=== PATIENT | male | born 1960 | race Caucasian/White ===

== ENCOUNTER 2017-09-29 04:30 | Emergency (ER) | payer OTHER ==
[~2017-09-29] VITALS: Ht 172.7 cm; Wt 89.8 kg
[2017-09-29] MEDS ORDERED: UNOBMED (04:32)
[2017-09-29 04:45] VITALS: BP 166/92
[2017-09-29 05:18] LABS: BASOPHILS % (AUTO) 0.9 % (0.0-2.0); EOSINOPHILS % (AUTO) 1.7 % (0.0-3.0); HEMATOCRIT 33.6 % (42.0-52.0); HEMOGLOBIN 10.7 G/DL (14.2-18.0); LYMPHOCYTES % (AUTO) 11.4 % (20.0-45.0); MEAN CORPUSCULAR VOLUME 96 FL (80-99); MONOCYTES % (AUTO) 9.9 % (1.0-10.0); NEUTROPHILS % (AUTO) 76.1 % (45.0-75.0); PLATELET COUNT 295 K/UL (150-450); RED BLOOD COUNT 3.49 M/UL (4.70-6.10); RED CELL DISTRIBUTION WIDTH 13.4 % (11.6-14.8); WHITE BLOOD COUNT 9.2 K/UL (4.8-10.8)
[2017-09-29 05:31] LABS: ANION GAP 7 mmol/L (5-15); BLOOD UREA NITROGEN 42 mg/dL (7-18); CALCIUM 7.6 MG/DL (8.5-10.1); CARBON DIOXIDE 28 MMOL/L (21-32); CHLORIDE 109 MMOL/L (98-107); CREATININE 3.6 MG/DL (0.55-1.30); POTASSIUM 3.8 MMOL/L (3.5-5.1); SODIUM 144 MMOL/L (136-145)
--- NOTE | 2017-09-29 05:33 | Emergency Room Report ---
History of Present Illness General Chief Complaint: Chest Pain Source: Patient Present Illness HPI 57-year-old male presents to ED complaining of chest pain started at rest tonight. Pain was initially a 5/10, dull, midsternal, nonradiating. Patient was given nitroglycerin states the pain is now improved. Has history of ESRD on dialysis. States he is compliant with his dialysis. Denies smoking or drug use. No other aggravating relieving factors. Denies any other associated symptoms Allergies: Coded Allergies: No Known Allergies (Unverified , 09/29/17) Patient History Past Medical History: DM, HTN, renal disease, dialysis Pertinent Family History: none Social History: Denies: smoking, alcohol use, drug use Immunizations: UTD Reviewed Nursing Documentation: PMH: Agreed, PSxH: Agreed Nursing Documentation-PMH Past Medical History: No History, Except For Hx Hypertension: Yes Hx Diabetes: Yes - dm2 Hx Dialysis: Yes - AV shunt on right arm; t-clara-sat Review of Systems All Other Systems: negative except mentioned in HPI Physical Exam Vital Signs Date Time Temp Pulse Resp B/P (MAP) Pulse Ox O2 Delivery O2 Flow Rate FiO2 09/29/17 04:28 98.2 94 16 178/103 95 Sp02 EP Interpretation: reviewed, normal General Appearance: no apparent distress, alert, GCS 15, non-toxic Head: normocephalic, atraumatic Eyes: bilateral eye normal inspection, bilateral eye PERRL ENT: hearing grossly normal, normal pharynx, no angioedema, normal voice Neck: full range of motion, supple/symm/no masses Respiratory: chest non-tender, lungs clear, normal breath sounds, speaking full sentences Cardiovascular #1: regular rate, rhythm, no edema Cardiovascular #2: 2+ carotid (R), 2+ carotid (L), 2+ radial (R), 2+ radial (L) , 2+ dorsalis pedis (R), 2+ dorsalis pedis (L) Gastrointestinal: normal bowel sounds, non tender, soft, non-distended, no guarding, no rebound Rectal: deferred Genitourinary: normal inspection, no CVA tenderness Musculoskeletal: back normal, gait/station normal, normal range of motion, non- tender Neurologic: alert, oriented x3, responsive, motor strength/tone normal, sensory intact, speech normal Psychiatric: judgement/insight normal, memory normal, mood/affect normal, no suicidal/homicidal ideation Reflexes: 3+ bicep (R), 3+ bicep (L), 3+ tricep (R), 3+ tricep (L), 3+ knee (R) , 3+ knee (L) Skin: normal color, no rash, warm/dry, well hydrated Lymphatic: no adenopathy Medical Decision Making Diagnostic Impression: Primary Impression: ACS (acute coronary syndrome) Additional Impression: ESRD (end stage renal disease) on dialysis ER Course Hospital Course 57-year-old male presents ED complaining of chest pain Differential diagnoses include: MA/unstable angina, contusion, muscle strain, PTX, rib fracture Clinical course Patient placed on stretcher. 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 After initial history and physical I ordered labs, EKG, chest x-ray labs reviewed- no leukocytosis, hb/hct stable, BUN/Cr eleavted, potassium ok, trop 0.075, BNP elevated EKG - NSR, no acute ischemic changes interpreted by me Chest x-ray- cardiomegaly, pleural effusion Because of insurance patient will be transferred I. I feel this is a highly complex case requiring extensive working including EKG/Rhythm strip, Xray/CT/US, Blood/urine lab work, repeat exams while in ED, and administration of strong opiates/narcotics for pain control, admission to hospital or close patient follow up. Diagnosis - ACS, ESRD transferred in serious condition Labs Test 09/29/17 05:00 White Blood Count 9.2 K/UL (4.8-10.8) Red Blood Count 3.49 M/UL (4.70-6.10) Hemoglobin 10.7 G/DL (14.2-18.0) Hematocrit 33.6 % (42.0-52.0) Mean Corpuscular Volume 96 FL (80-99) Mean Corpuscular Hemoglobin 30.8 PG (27.0-31.0) Mean Corpuscular Hemoglobin Concent 32.0 G/DL (32.0-36.0) Red Cell Distribution Width 13.4 % (11.6-14.8) Platelet Count 295 K/UL (150-450) Mean Platelet Volume 6.9 FL (6.5-10.1) Neutrophils (%) (Auto) 76.1 % (45.0-75.0) Lymphocytes (%) (Auto) 11.4 % (20.0-45.0) Monocytes (%) (Auto) 9.9 % (1.0-10.0) Eosinophils (%) (Auto) 1.7 % (0.0-3.0) Basophils (%) (Auto) 0.9 % (0.0-2.0) Sodium Level 144 MMOL/L (136-145) Potassium Level 3.8 MMOL/L (3.5-5.1) Chloride Level 109 MMOL/L (98-107) Carbon Dioxide Level 28 MMOL/L (21-32) Anion Gap 7 mmol/L (5-15) Blood Urea Nitrogen 42 mg/dL (7-18) Creatinine 3.6 MG/DL (0.55-1.30) Estimat Glomerular Filtration Rate 17.5 mL/min (>60) Glucose Level 141 MG/DL (74-106) Calcium Level 7.6 MG/DL (8.5-10.1) Total Bilirubin 0.3 MG/DL (0.2-1.0) Aspartate Amino Transf (AST/SGOT) 16 U/L (15-37) Alanine Aminotransferase (ALT/SGPT) 19 U/L (12-78) Alkaline Phosphatase 129 U/L (46-116) Total Creatine Kinase 261 U/L (26-308) Creatine Kinase MB 4.8 NG/ML (0.0-3.6) Creatine Kinase MB Relative Index 1.8 Troponin I 0.075 ng/mL (0.000-0.056) Pro-B-Type Natriuretic Peptide 08578 pg/mL (0-125) Total Protein 7.9 G/DL (6.4-8.2) Albumin 3.5 G/DL (3.4-5.0) Globulin 4.4 g/dL Albumin/Globulin Ratio 0.8 (1.0-2.7) EKG Diagnostic Results Rate: normal Rhythm: NSR ST Segments: no acute changes ASA given to the pt in ED: No - given by ems Rhythm Strip Diag. Results EP Interpretation: yes Rhythm: NSR, no PVC's, no ectopy Chest X-Ray Diagnostic Results Chest X-Ray Diagnostic Results : Chest X-Ray Ordered: Yes # of Views/Limited/Complete: 1 View Indication: Chest Pain EP Interpretation: Yes Interpretation: no pneumothorax, no acute cardiopulmonary disease, other - cardiomegaly. b/l effusion Impression: Other - chf Electronically Signed by: Electronically signed by Jean Pierre Zamorano MD Last Vital Signs Date Time Temp Pulse Resp B/P (MAP) Pulse Ox O2 Delivery O2 Flow Rate FiO2 09/29/17 04:28 98.2 94 16 178/103 95 Status: improved Disposition: XFER [facility] Condition: Serious Referrals: NOT CHOSEN TOMEKA/,REFERRING (PCP) JEAN PIERRE ZAMORANO M.D. Sep 29, 2017 05:33
[2017-09-29 05:40] VITALS: BP 162/88
[2017-09-29 05:43] LABS: ALANINE AMINOTRANSFERASE 19 U/L (12-78); ALBUMIN 3.5 G/DL (3.4-5.0); ALBUMIN/GLOBULIN RATIO 0.8 (1.0-2.7); ALKALINE PHOSPHATASE 129 U/L (46-116); ASPARTATE AMINO TRANSFERASE 16 U/L (15-37); BILIRUBIN,TOTAL 0.3 MG/DL (0.2-1.0); CKMB 4.8 NG/ML (0.0-3.6); CREATINE KINASE 261 U/L (26-308)
[2017-09-29 06:45] VITALS: BP 152/88
[2017-09-29 08:00] VITALS: BP 166/88
[2017-09-29 08:21] VITALS: BP 166/88
--- NOTE | 2017-09-29 10:57 | Diagnostic Imaging Report ---
Indication: Chest pain Technique: One view of the chest Comparison: none Findings: There is a right-sided pleural effusion. There is bilateral pulmonary interstitial edema. The heart is borderline enlarged Impression: Right pleural effusion Pulmonary interstitial edema Cardiomegaly
--- NOTE | 2017-10-01 19:37 | Cardiology Report ---
APPROVED REPORT EKG Measurement Heart [id number] Normal sinus rhythm Right bundle branch block Abnormal ECG
== END 2017-09-29 08:50 | disposition short-term general hospital (02) ==
LOC: EDBD 04:30 → EMR 04:50
DX: I24.9 Acute ischemic heart disease, unspecified (principal); I12.0 Hypertensive chronic kidney disease with stage 5 chronic kidney disease or end stage renal disease; N18.6 End stage renal disease; Z99.2 Dependence on renal dialysis
CPT/HCPCS: 36415; 71045; 80053; 82550; 82553; 83880; 84484; 85025; 93005; 99285

== ENCOUNTER 2019-11-05 21:51 | Emergency (ER) | payer OTHER ==
[~2019-11-05] VITALS: Ht 170.2 cm; Wt 86.2 kg
[~2019-11-05 21:51] MED LIST: UNOBMED
[2019-11-05 22:00] VITALS: BP 120/69
[2019-11-05] MEDS ORDERED: Acetaminophen 500mg (ES) tab ORAL ONE (22:00)
--- NOTE | 2019-11-05 22:00 | NUR ---
ED Nurse Note: Pt brought in by ambulance c/o upper back pain and generalized weakness since a few days. Pt stated he is complient with dalysis T, TR, SA and went to dialysis 2/. Stated he has not taken lasix for one week. Denies lower edema. Pt placed on campus monitor
[2019-11-05 22:37] LABS: HEMATOCRIT 27.5 % (42.0-52.0); HEMOGLOBIN 8.7 G/DL (14.2-18.0); MEAN CORPUSCULAR VOLUME 97 FL (80-99); PLATELET COUNT 281 K/UL (150-450); RED BLOOD COUNT 2.83 M/UL (4.70-6.10); RED CELL DISTRIBUTION WIDTH 12.1 % (11.6-14.8); WHITE BLOOD COUNT 13.6 K/UL (4.8-10.8)
[2019-11-05 22:38] LABS: BASOPHILS % (AUTO) 0.4 % (0.0-2.0); EOSINOPHILS % (AUTO) 0.3 % (0.0-3.0); MONOCYTES % (AUTO) 1.9 % (1.0-10.0); NEUTROPHILS % (AUTO) 95.7 % (45.0-75.0)
--- NOTE | 2019-11-05 22:46 | Diagnostic Imaging Report ---
EXAM: XR Chest, 1 View CLINICAL HISTORY: SOB TECHNIQUE: Frontal view of the chest. COMPARISON: 09/29/17. FINDINGS: Lungs: Lung perrin are clear. Pleural space: Unremarkable. No pneumothorax. Heart: Unremarkable. No cardiomegaly. Mediastinum: Unremarkable. Bones/joints: Degenerative disease of the shoulders and spine. Tubes, lines and devices: There is a right-sided central line with the tip in the distal SVC. IMPRESSION: 1. Right-sided central line as described above. 2. No acute cardiac pulmonary disease.
--- NOTE | 2019-11-05 22:46 | Emergency Room Report ---
History of Present Illness General Chief Complaint: Dyspnea/Respdistress Source: Patient Present Illness HPI This is a 59-year-old male with a history of end-stage renal disease. His hemodialysis days are Friday, , and Friday. Also has a history of high blood pressure and diabetes. He presents with chief complaint of shortness of breath and chest pain. Onset about 2 to 3 hours ago. He has tightness in his chest. He feels short of breath. Is been coughing. He has pain to the back. Subjective fever and chills. Nothing made it better. Nothing made it worse. Denies any other complaint. No exertional component. No diaphoresis. No nausea or vomiting. Allergies: Coded Allergies: No Known Allergies (Unverified , 09/29/17) Patient History Past Medical History: see triage record, old chart reviewed Past Surgical History: none Pertinent Family History: none Social History: Denies: smoking Immunizations: other Reviewed Nursing Documentation: PMH: Agreed; PSxH: Agreed Nursing Documentation-PMH Hx Cardiac Problems: Yes - 2 cardiac stents 02/2019, CHF Hx Hypertension: Yes Hx Diabetes: Yes Hx Dialysis: Yes - AV shunt on right arm; t-clara-sat History Of Psychiatric Problem: Yes - bipolar Review of Systems Constitutional: Reports: chills, fever Eye: Denies: eye pain, blurred vision ENT: Denies: ear pain, nose congestion, throat swelling Respiratory: Reports: cough, shortness of breath Cardiovascular: Reports: chest pain; Denies: palpitations Gastrointestinal: Denies: abdominal pain, diarrhea, nausea, vomiting Musculoskeletal: Denies: back pain, joint pain Skin: Denies: rash Neurological: Denies: headache, numbness Endocrine: Denies: increased thirst, increased urine Hematologic/Lymphatic: Denies: easy bruising All Other Systems: negative except mentioned in HPI Physical Exam Vital Signs Date Time Temp Pulse Resp B/P (MAP) Pulse Ox O2 Delivery O2 Flow Rate FiO2 11/05/19 21:44 97.9 115 20 120/69 (86) 97 Room Air Vitals normal Sp02 EP Interpretation: reviewed, normal General Appearance: well appearing, no apparent distress, alert Head: normocephalic, atraumatic Eyes: bilateral eye PERRL, bilateral eye EOMI ENT: hearing grossly normal, normal pharynx Neck: full range of motion, supple, no meningismus Respiratory: chest non-tender, lungs clear, normal breath sounds Cardiovascular #1: regular rate, rhythm, no murmur Gastrointestinal: normal bowel sounds, non tender, no mass, no organomegaly, no bruit, non-distended Musculoskeletal: back normal, normal range of motion, gait/station normal Psychiatric: mood/affect normal Medical Decision Making Diagnostic Impression: Primary Impression: Dyspnea Qualified Codes: R06.00 - Dyspnea, unspecified ER Course Patient presents with dyspnea. He is not tachycardic or tachypneic here. Not hypoxic. X-ray is unremarkable. May be an early viral illness since he has coughing and subjective fever. Because of his risk factors, will cover with antibiotics. No evidence of ACS, PE, dissection to name a few. EKG Diagnostic Results Rate: normal, tachycardiac Rhythm: NSR ST Segments: no acute changes Rhythm Strip Diag. Results EP Interpretation: yes Rate: 100 Rhythm: NSR, no PVC's, no ectopy Chest X-Ray Diagnostic Results Chest X-Ray Diagnostic Results : Chest X-Ray Ordered: Yes # of Views/Limited/Complete: 1 View Indication: Shortness of Breath EP Interpretation: Yes Interpretation: no consolidation, no effusion, no pneumothorax, no acute cardiopulmonary disease Impression: No acute disease Electronically Signed by: Nasir Parker MD Last Vital Signs Date Time Temp Pulse Resp B/P (MAP) Pulse Ox O2 Delivery O2 Flow Rate FiO2 11/05/19 22:00 115 20 Room Air 11/05/19 22:00 100.2 120/69 97 Status: improved Disposition: HOME, SELF-CARE Condition: Stable Scripts Levofloxacin* (LEVAQUIN*) 500 Mg Tablet 500 MG ORAL DAILY, #7 TAB Prov: Nasir Parker MD 11/05/19 Patient Instructions: Shortness of Breath, [id number] Additional Instructions: Follow-up with your doctor in 7 days. Return if worse. Nasir Parker MD Nov 05, 2019 22:46
[2019-11-05 22:49] LABS: ANION GAP 11 mmol/L (5-15); BLOOD UREA NITROGEN 56 mg/dL (7-18); CALCIUM 8.8 MG/DL (8.5-10.1); CARBON DIOXIDE 27 MMOL/L (21-32); CHLORIDE 95 MMOL/L (98-107); CREATININE 5.6 MG/DL (0.55-1.30); POTASSIUM 5.1 MMOL/L (3.5-5.1); SODIUM 133 MMOL/L (136-145)
[2019-11-05 23:02] LABS: ALANINE AMINOTRANSFERASE 16 U/L (12-78); ALBUMIN 3.5 G/DL (3.4-5.0); ALBUMIN/GLOBULIN RATIO 0.7 (1.0-2.7); ALKALINE PHOSPHATASE 74 U/L (46-116); ASPARTATE AMINO TRANSFERASE 20 U/L (15-37); BILIRUBIN,TOTAL 0.5 MG/DL (0.2-1.0); CKMB 2.1 NG/ML (0.0-3.6); CREATINE KINASE 109 U/L (26-308)
[2019-11-05] MEDS ORDERED: LEVAQUIN500 MG ORAL (23:46)
[2019-11-06 00:25] VITALS: BP 120/69
--- NOTE | 2019-11-06 00:25 | NUR ---
ER DISCHARGE NOTE: Patient is cleared to be discharged per ERMD, pt is aox4, on room air, with stable vital signs. pt was given dc and prescription instructions, pt was able to verbalize understanding, pt id band and iv site removed without complications. pt is able to ambulate with steady gait. pt took all belongings. Pt taking taxi provided
--- NOTE | 2019-11-07 11:09 | NUR ---
[facility] was called spoke w/ back up machine operator [phone] to request wellfare check on pt
[2019-11-07] MEDS ORDERED: METFORMIN HCL500 M1 ORAL (13:45)
[2019-11-07] MEDS ORDERED: BENAZEPRIL HCL20 MG ORAL (13:45)
[2019-11-07] MEDS ORDERED: ASPIR 8181 MG ORAL (13:46)
[2019-11-07] MEDS ORDERED: OMEPRAZOLE40 M1 ORAL (14:25)
[2019-11-07] MEDS ORDERED: CALCIUM ACETAT667 M1 PO (14:25)
[2019-11-07] MEDS ORDERED: ATORVASTATIN CA20 MG ORAL (14:25)
[2019-11-07] MEDS ORDERED: BENAZEPRIL HCL10 MG ORAL (14:25)
[2019-11-07] MEDS ORDERED: BACTRIM DOUBLE S1 E1 ORAL (14:25)
== END 2019-11-06 00:25 | disposition home or self-care (01) ==
LOC: EDBD 21:51 → EMR 22:04
DX: R06.00 Dyspnea, unspecified (principal); R07.9 Chest pain, unspecified; I12.0 Hypertensive chronic kidney disease with stage 5 chronic kidney disease or end stage renal disease; E11.22 Type 2 diabetes mellitus with diabetic chronic kidney disease; N18.6 End stage renal disease; Z99.2 Dependence on renal dialysis; Z95.5 Presence of coronary angioplasty implant and graft; F31.9 Bipolar disorder, unspecified; R00.0 Tachycardia, unspecified
CPT/HCPCS: 36415; 71045; 80053; 82550; 82553; 83605; 84484; 85025; 86710; 87040; 87181; 93005; Z7502; 99284

== ENCOUNTER 2019-11-07 12:33 | Emergency (ER) | payer OTHER ==
[~2019-11-07] VITALS: Ht 177.8 cm; Wt 78.5 kg
[~2019-11-07 12:33] MED LIST changes: +LEVAQUIN500 MG ORAL
--- NOTE | 2019-11-07 12:53 | Emergency Room Report ---
History of Present Illness General Chief Complaint: positive blood culture Source: Patient (Robles Murillo MD) Present Illness HPI Patient is a 59-year-old male who presented after being contacted for positive blood culture. Patient had recent ER visit which showed gram-positive cocci in clusters on laboratory testing. He had been having some fever as well as persistent pain. Patient had been recently prescribed Levaquin.Patient is currently on dialysis and has right-sided dialysis access. He had previous infection to his right upper extremity which had some prior access in the past. Reports having increased pain to the left side of his chest. Reports of increased chills. (Robles Murillo MD) Allergies: Coded Allergies: No Known Allergies (Unverified , 09/29/17) Patient History Past Medical History: see triage record Reviewed Nursing Documentation: PMH: Agreed; PSxH: Agreed (Robles Murillo MD) Nursing Documentation-PMH Hx Cardiac Problems: Yes - 2 cardiac stents 02/2019, CHF Hx Hypertension: Yes Hx Diabetes: Yes - dm2 Hx Dialysis: Yes - AV shunt on right arm; t-clara-sat (Robles Murillo MD) Review of Systems All Other Systems: negative except mentioned in HPI (Robles Murillo MD) Physical Exam Sp02 EP Interpretation: reviewed, normal General Appearance: normal inspection, alert, GCS 15, obese, Chronically Ill Head: atraumatic ENT: normal ENT inspection, hearing grossly normal, normal voice Neck: normal inspection, full range of motion, supple, no bony tend Respiratory: normal inspection, lungs clear, normal breath sounds, no respiratory distress, no retraction, no wheezing, other Cardiovascular #1: regular rate, rhythm, no edema Gastrointestinal: normal inspection, normal bowel sounds, non tender, soft, no guarding, no hernia Genitourinary: no CVA tenderness Musculoskeletal: normal inspection, back normal, normal range of motion Neurologic: alert, motor strength/tone normal, wind commissioning technician III-XII nml as tested, responsive, speech normal, normal inspection Psychiatric: mood/affect normal, anxious, other Skin: no rash, other - right upper extremity post surgical site. (Robles Murillo MD) Medical Decision Making Diagnostic Impression: Primary Impression: Gram-positive cocci bacteremia Additional Impression: End stage kidney disease ER Course Patient presented for positive blood culture. Differential diagnosis include was not limited to have bacteremia, severe sepsis, contaminant among others. Because of complexity of patient's case laboratory tests and imaging studies were ordered. Patient was noted to have some fever on prior visit. Patient's symptomatology suggest that he is bacteremic. Patient will be given empiric treatment with vancomycin as well as Rocephin. He reportedly had recent dialysis. Patient was endorsed to Dr. Church pending transfer for further treatment of bacteremia. (Robles Murillo MD) EKG Diagnostic Results Rate: tachycardiac - 104 Rhythm: NSR ST Segments: other - right bundle branch block (Robles Murillo MD) Rhythm Strip Diag. Results EP Interpretation: yes Rhythm: no PVC's, no ectopy (Robles Murillo MD) Status: improved (Robles Murillo MD) Reevaluation Time: 15:00 Reevaluation Impression Assumed care of the patient from previous provider approximately 2 PM Briefly, this a 59-year-old male history of he was ESRD on hemodialysis. He was seen in the emergency department few days ago for cough and general URI complaints. Today blood cultures returned positive and the patient returned. He has been on Levaquin but was given ceftriaxone and vancomycin. Labs show an elevated white count with a neutrophil predominance and baseline anemia. Lactate within normal limits. He will be transferred to [facility] where he is capitated for further care. (Pancho Church MD) Disposition: ER T-[facility] HOSP Condition: Stable Robles Murillo MD Nov 07, 2019 12:53 Pancho Church MD Nov 07, 2019 15:01
[2019-11-07 13:00] VITALS: BP 155/78
[2019-11-07] MEDS ORDERED: Vancomycin 1.5 GM in NS 275 ML IVPB ONE (13:00)
[2019-11-07] MEDS ORDERED: cefTRIAXone 1 GM in NS 55 ML IVPB ONE (13:00)
--- NOTE | 2019-11-07 13:00 | NUR ---
ED Nurse Note: Pt walked in from home d/t left upper back pain 07/08 x 2 days. Pt was [place] [facility] [place] for the same back pain. Pt was called back in by ED MD d/t positive blood cultures. Caregiver @ bedside. Heart rate 110. All other vital signs stable as documented. Pt placed on monitor.
--- NOTE | 2019-11-07 13:10 | NUR ---
ED Nurse Note: Pt has hx of ESRD with HD M/W/F. Old, infected AV shunt noted on right. New IV shunt on left arm. Alessandro cath on chest noted as well.
[2019-11-07] MEDS ORDERED: BENAZEPRIL HCL20 MG ORAL (13:45)
[2019-11-07] MEDS ORDERED: METFORMIN HCL500 M1 ORAL (13:45)
[2019-11-07] MEDS ORDERED: ASPIR 8181 MG ORAL (13:46)
--- NOTE | 2019-11-07 13:49 | NUR ---
ED Nurse Note: Blood sent to lab
[2019-11-07 14:03] LABS: HEMOGLOBIN 8.5 G/DL (14.2-18.0); MEAN CORPUSCULAR VOLUME 92 FL (80-99); PLATELET COUNT 234 K/UL (150-450); RED BLOOD COUNT 2.71 M/UL (4.70-6.10); RED CELL DISTRIBUTION WIDTH 11.5 % (11.6-14.8); WHITE BLOOD COUNT 17.7 K/UL (4.8-10.8)
[2019-11-07 14:14] LABS: ANION GAP 15 mmol/L (5-15); BLOOD UREA NITROGEN 74 mg/dL (7-18); CALCIUM 8.8 MG/DL (8.5-10.1); CARBON DIOXIDE 21 MMOL/L (21-32); CHLORIDE 96 MMOL/L (98-107); CREATININE 6.4 MG/DL (0.55-1.30); POTASSIUM 5.2 MMOL/L (3.5-5.1); SODIUM 132 MMOL/L (136-145)
[2019-11-07 14:17] LABS: APPEARANCE,URINE CLEAR; BILIRUBIN, URINE NEGATIVE (NEGATIVE); COLOR,URINE PALE YELLOW; GLUCOSE, URINE (UA) 1+ (NEGATIVE); KETONES,URINE NEGATIVE (NEGATIVE); LEUKOCYTE ESTERASE ,URINE 1+ (NEGATIVE); NITRITE,URINE NEGATIVE (NEGATIVE); PH,URINE 7 (4.5-8.0); PROTEIN,URINE 3+ (NEGATIVE); UROBILINOGEN,URINE NORMAL MG/DL (0.0-1.0)
[2019-11-07] MEDS ORDERED: BENAZEPRIL HCL10 MG ORAL (14:25)
[2019-11-07] MEDS ORDERED: ATORVASTATIN CA20 MG ORAL (14:25)
[2019-11-07] MEDS ORDERED: BACTRIM DOUBLE S1 E1 ORAL (14:25)
[2019-11-07] MEDS ORDERED: OMEPRAZOLE40 M1 ORAL (14:25)
[2019-11-07] MEDS ORDERED: CALCIUM ACETAT667 M1 PO (14:25)
[2019-11-07 14:26] LABS: ALANINE AMINOTRANSFERASE 16 U/L (12-78); ALBUMIN 3.3 G/DL (3.4-5.0); ALBUMIN/GLOBULIN RATIO 0.7 (1.0-2.7); ALKALINE PHOSPHATASE 82 U/L (46-116); ASPARTATE AMINO TRANSFERASE 19 U/L (15-37); BILIRUBIN,TOTAL 0.5 MG/DL (0.2-1.0); CKMB 2.1 NG/ML (0.0-3.6); CREATINE KINASE 59 U/L (26-308)
--- NOTE | 2019-11-07 14:37 | NUR ---
ED Nurse Note: Pt continues to pull off director of cardiac cath lab leads.
[2019-11-07 15:00] VITALS: BP 159/85
--- NOTE | 2019-11-07 15:02 | NUR ---
ED Nurse Note: Report given to Alyssa nursing supervisor net making @ [facility]
[2019-11-07 16:17] VITALS: BP 155/84
[2019-11-07] MEDS ORDERED: Acetaminophen 500mg (ES) tab ORAL ONE ×2 (16:18→16:30)
[2019-11-07 17:50] VITALS: BP 152/98
--- NOTE | 2019-11-07 17:50 | NUR ---
ED Nurse Note: Report given to paramedics. Pt shows no signs of distress. TEMP: 101. Respirations even and unlabored on room air. Pt in stable condition. Pt being discharged with IV, flushed and patent. Pt discharged safely via gurney with ambulance personnel.
--- NOTE | 2019-11-08 14:20 | Diagnostic Imaging Report ---
Indication: Dyspnea Comparison: 11/05/2019 A single view chest radiograph was obtained. Findings: Right jugular catheter again noted unchanged. Borderline cardiomegaly is stable. Lung volumes are low. Lungs remain clear. IMPRESSION: No acute findings. No change.
== END 2019-11-07 17:50 | disposition short-term general hospital (02) ==
LOC: EMR 13:04 → EDBEDREQ 14:25 → EMR 17:50
DX: B96.89 Other specified bacterial agents as the cause of diseases classified elsewhere (principal); E11.22 Type 2 diabetes mellitus with diabetic chronic kidney disease; I12.0 Hypertensive chronic kidney disease with stage 5 chronic kidney disease or end stage renal disease; N18.6 End stage renal disease; Z99.2 Dependence on renal dialysis; R07.9 Chest pain, unspecified; R00.0 Tachycardia, unspecified; I45.10 Unspecified right bundle-branch block
CPT/HCPCS: 36415; 71045; 80053; 81003; 82550; 82553; 83605; 84484; 85007; 85025; 87040; 93005; 96365; 96366; 96368; J0696; J3370; J7050; Z7502; 99284